=== PATIENT | female | born 1955 | race Hispanic/Latino ===

== ENCOUNTER 2020-02-08 22:59 | Observation (INO) | payer OTHER ==
[~2020-02-08] VITALS: Ht 149.9 cm; Wt 74.4 kg
[2020-02-08 23:40] LABS: BASOPHILS % 0.3 % (0.0-1.0); EOSINOPHILS # (AUTO) 0.2 (0.0-0.4); EOSINOPHILS % 1.3 % (0.0-6.0); HEMATOCRIT 40.8 % (34.2-44.1); HEMOGLOBIN 13.6 g/dL (12.0-16.0); LYMPHOCYTES # (AUTO) 1.8 (1.0-3.2); LYMPHOCYTES % 15.5 % (18.0-39.1); MEAN CORPUSCULAR HEMOGLOBIN 28.4 pg (28-32); MEAN CORPUSCULAR HGB CONC 33.3 g/dL (31-35); MEAN CORPUSCULAR VOLUME 85.2 fL (81-99); MONOCYTES # (AUTO) 0.6 (0.2-0.8); MONOCYTES % 4.7 % (4.4-11.3); NEUTROPHILS # (AUTO) 9.2 (2.1-6.9); NEUTROPHILS % 77.8 % (38.7-80.0); PLATELET COUNT 232 x10e3/uL (140-360); RED BLOOD COUNT 4.79 x10e6/uL (3.6-5.1)
[2020-02-08 23:42] LABS: BILIRUBIN,URINE NEGATIVE (NEGATIVE); CLARITY,URINE CLEAR (CLEAR); COLOR,URINE YELLOW (YELLOW); KETONES,URINE NEGATIVE (NEGATIVE); LEUKOCYTE ESTERASE ,URINE NEGATIVE (NEGATIVE); NITRITE,URINE NEGATIVE (NEGATIVE); PROTEIN,URINE DIPSTICK 3+ (NEGATIVE); URINE UROBILINOGEN 0.2 mg/dL (0.2 - 1)
[2020-02-08 23:50] LABS: BACTERIA,URINE FEW /HPF; EPITHELIAL CELLS,URINE MODERATE /LPF; RBC,URINE 21-50 /HPF (0-5)
[2020-02-08 23:57] LABS: AMYLASE 118 U/L (25-125); LIPASE 37 U/L (8-78)
[2020-02-09] VITALS (10 sets, daily range): BP systolic 110–136; BP diastolic 52–62
[2020-02-09] LABS: ALANINE AMINOTRANSFERASE 21 IU/L (0-55); ALBUMIN 4.2 g/dL (3.5-5.0); ALBUMIN/GLOBULIN RATIO 1.3 (0.8-2.0); ALKALINE PHOSPHATASE 80 IU/L (40-150); ANION GAP 16.4 mmol/L (8-16); BLOOD UREA NITROGEN 25 mg/dL (7-26); BUN/CREATININE RATIO 22 (6-25); CALCIUM 9.4 mg/dL (8.4-10.2); CARBON DIOXIDE 26 mmol/L (22-29); CHLORIDE 105 mmol/L (98-107); CREATINE KINASE 73 IU/L (29-168); CREATININE, SERUM 1.12 mg/dL (0.57-1.11); EST GLOMERULAR FILTRATION RATE 49 ML/MIN (60-); GLUCOSE 107 mg/dL (74-118); POTASSIUM 3.4 mmol/L (3.5-5.1); SODIUM 144 mmol/L (136-145)
[2020-02-09] MEDS ORDERED: ONDANSETRON HCL INJ 2MG/ML 2ML 2 MG/ML VIAL IV PRN (01:00)
[2020-02-09] MEDS ORDERED: NITROGLYCERIN 0.4 MG SUBL SL PRN (01:00)
[2020-02-09] MEDS: CEFTRIAXONE SOD 1 GM/NS 50 ML 50 ML IV SCH (01:53)
[2020-02-09] MEDS: FAMOTIDINE 20 MG TAB PO SCH ×2 (01:53→13:00)
[2020-02-09] MEDS ORDERED: METOPROLOL SUCC25 MG PO (03:37)
[2020-02-09] MEDS ORDERED: CITALOPRAM HBR20 MG PO (03:37)
[2020-02-09] MEDS ORDERED: LATANOPROST2.5 ML OP (03:37)
[2020-02-09] MEDS ORDERED: ASPIRIN EC81 MG PO (03:37)
[2020-02-09] MEDS: ASPIRIN 81 MG ENTERIC COATED PO SCH (09:00)
[2020-02-09 10:14] LABS: CREATINE KINASE MB 1.4 ng/mL (0-5.0)
[2020-02-09] MEDS ORDERED: VERAPAMIL HCL 2.5 MG/ML 2 ML VIAL ONE (13:00)
[2020-02-09] MEDS ORDERED: SODIUM CHLORIDE 0.9% 1000ML 1,000 ML ONE (13:01)
[2020-02-09] MEDS ORDERED: HEPARIN SOD/SOD CHLORIDE 2,000 ML ONE (13:01)
[2020-02-09] MEDS ORDERED: LIDOCAINE HCL 2% LOCAL 20 ML VIAL ONE (13:01)
[2020-02-09] MEDS ORDERED: IOPAMIDOL 370 MG/ML 200 ML INFUS..BTL INJ ONE (13:01)
[2020-02-09] MEDS ORDERED: MIDAZOLAM HCL 2 MG/2 ML VIAL ONE (13:23)
[2020-02-09] MEDS ORDERED: FENTANYL CITRATE/PF 100MCG/2 ML INJ ONE (13:24)
[2020-02-09 19:20] LABS: CREATINE KINASE MB 1.5 ng/mL (0-5.0)
[2020-02-09] MEDS: METOPROLOL SUCCINATE 25 MG TAB XL PO SCH (20:44)
[2020-02-09] MEDS ORDERED: LATANOPROST(OPTH) 2.5 ML BTL OP SCH (21:00)
[2020-02-09] MEDS ORDERED: CITALOPRAM HYDROBROMIDE 20 MG TAB PO SCH (21:00)
[2020-02-10] MEDS ORDERED: SODIUM CHLORIDE 0.9% 250ML 250 ML ONE (00:39)
[2020-02-10] MEDS: CEFTRIAXONE SOD 1 GM/NS 50 ML 50 ML IV SCH (01:00)
[2020-02-10] MEDS: FAMOTIDINE 20 MG TAB PO SCH ×2 (01:00→13:43)
[2020-02-10 04:40] VITALS: BP 109/60
[2020-02-10 07:10] LABS: CHOL/HDL RATIO 3.4 (3.0-3.6)
[2020-02-10] MEDS: METOPROLOL SUCCINATE 25 MG TAB XL PO SCH (08:45)
[2020-02-10] MEDS: ASPIRIN 81 MG ENTERIC COATED PO SCH (09:00)
[2020-02-10 09:01] VITALS: BP 116/60
[2020-02-10 09:13] VITALS: BP 116/60
[2020-02-10 13:33] VITALS: BP 135/64
== END 2020-02-10 17:18 | disposition home or self-care (01) ==
LOC: ER 02-09 00:15 → ERHOLD 02-09 01:02 → MED/SURG3 02-09 02:12
PROVIDERS: ADMIT Internal Medicine Interventional Cardiology; ATTEND Internal Medicine Interventional Cardiology
DX: I25.119 Atherosclerotic heart disease of native coronary artery with unspecified angina pectoris (principal); Z11.59 Encounter for screening for other viral diseases; N39.0 Urinary tract infection, site not specified; E78.5 Hyperlipidemia, unspecified; I12.9 Hypertensive chronic kidney disease with stage 1 through stage 4 chronic kidney disease, or unspecified chronic kidney disease; N18.9 Chronic kidney disease, unspecified
CPT/HCPCS: 36415 ×3; 70450; 71045; 80053; 80061; 81001; 82150; 82550 ×2; 82553 ×2; 83690; 84484 ×2; 85025; 87086; 93005; 93458; 99284; C1760; C1769; G0378 ×2; J0696 ×2; J2001; J2250; J3010; J7030; J7050; Q9967; U0002; 37185; 99152